=== PATIENT | male | born 1975 | race Hispanic/Latino ===

== ENCOUNTER 2023-08-17 01:47 | Day surgery (SDC) | payer OTHER, SELFPAY ==
[2023-08-03 14:49] VITALS: BMI 31.7
--- NOTE | 2023-08-03 15:16 | PC.NURSE ---
Anesthesiology [place] [id number]
[2023-08-17 12:44] VITALS: BP 136/79; PULSE 60; RESP 20; TEMP 36.1; O2SAT 98; BMI 30.8
--- NOTE | 2023-08-17 12:46 | SUR.PREOP ---
Aquatics Manager [facility] [id number]
[2023-08-17] MEDS: LACTATED RINGERS 1,000 ML 150 ML IV CONT (12:59)
--- NOTE | 2023-08-17 13:00 | WPDANESEPPF ---
Anes - Initial Pre Proc Eval Procedure: Operation Date: 08/17/23 13:30 Proposed Procedures p Esophagogastroduodenoscopy - Agus Chavez MD Date/Time: 08/17/23 13:00 Surgeon: Agus Chavez MD Pre Op Diagnosis: epigastric pain, abdominal distension gaseous Patient Data Age: 48 Gender: M Height: 1.7 m Weight: 89.3 kg Last Vital Signs Temp 97 F L 08/17/23 12:44 Pulse 60 08/17/23 12:44 Resp 20 08/17/23 12:44 BP 136/79 08/17/23 12:44 Pulse Ox 98 08/17/23 12:44 O2 Del Method Room Air 08/17/23 12:44 Allergies Allergy/AdvReac Type Severity Reaction Status Date / Time No Known Allergies Allergy Verified 08/17/23 12:43 Home Medications Medication Instructions Recorded Confirmed Type losartan 50 mg-hydrochlorothiazide 1 tablet PO DAILY 06/16/23 08/17/23 History 12.5 mg tablet omeprazole 40 mg capsule,delayed 40 mg PO DAILY #30 caps 06/16/23 08/17/23 Rx release Patient hx anesthesia problems: none Family hx anesthesia problems: none Results Review: All pre-operative results and documents have been reviewed as part of the pre-operative evaluation. [facility] Social History Social History Smoking status: Unknown if ever smoked Living arrangements: with family Spiritual care concerns: No Anes - Eval Final PreProcedure Day of Procedure 08/17/23 13:00 Patient weight: obese Heart: regular rate and rhythm Lungs: clear to auscultation Airway: Mallampati scale class II and special considerations (Tooth R upper aspect broken. ) Neurological: alert and oriented Last oral intake: >/= 8 hours ASA classification: II Emergent: no Anesthetic plan: proceed Anesthesia type and monitoring: general GIVS and standard monitoring Results Review: All pre-operative results and documents have been reviewed as part of the pre-operative evaluation. Interview via abstract manager. Informed Consent: The patient's anesthetic plan and its attendant risks and benefits were discussed with the patient/family/POA. Questions were solicited and answers provided to the satisfaction of the patient/family/POA.
--- NOTE | 2023-08-17 13:34 | PM.HPGS ---
History of Present Illness History of Present Illness Consent: Risks, benefits, and alternatives have been discussed and questions answered. Patient agrees to proceed with procedure. Chief complaint: epigastric pain, abdominal distension gaseous Narrative: Collins Gutierrez is a 48 year old male with gerd better as long as he is taking omeprazole, also intermittent pain in luq, never had egd Review of Systems Review of Systems: All systems reviewed & are unremarkable except as noted in HPI and below PMFSH Social History Social History Smoking status: Unknown if ever smoked Living arrangements: with family Spiritual care concerns: No Meds Home Medications and Allergies Home Medications Medication Instructions Recorded Confirmed Type losartan 50 mg-hydrochlorothiazide 1 tablet PO DAILY 06/16/23 08/17/23 History 12.5 mg tablet omeprazole 40 mg capsule,delayed 40 mg PO DAILY #30 caps 06/16/23 08/17/23 Rx release Allergies Allergy/AdvReac Type Severity Reaction Status Date / Time No Known Allergies Allergy Verified 08/17/23 12:43 Vital Signs Vital Signs - 24 hr 08/17/23 12:44 Temperature 97 F L Pulse Rate 60 Respiratory Rate 20 Blood Pressure 136/79 Pulse Oximetry 98 Oxygen Delivery Room Air Exam Const: General: comfortable and no acute distress HENMT: Face/Nose/Sinus: Normal nares present Eyes: General: appearance normal, both eyes and all related structures Neck: Neck: no JVD Resp: Auscultation: clear to auscultation bilaterally Cardio: Rate: regular rate Rhythm: regular rhythm GI: Inspection: non-distended GI Palp: Yes Soft to palpation Skin: General skin exam: normal color Neuro: General: gait normal Speech: normal speech Extrem: General: normal to inspection Psych: Mental Status: mental status grossly normal Assessment and Plan Assessment and plan (1) LUQ pain: Code(s): R10.12 - Left upper quadrant pain Status: Acute Assessment and Plan: egd with bx (2) Abdominal bloating: Code(s): R14.0 - Abdominal distension (gaseous) Status: Acute
[2023-08-17 13:48] VITALS: BP 105/56; PULSE 61; RESP 20; O2SAT 98
[2023-08-17 13:58] VITALS: BP 100/57; PULSE 60; RESP 20; O2SAT 96
[2023-08-17 14:07] VITALS: BP 108/68; PULSE 60; RESP 20; O2SAT 98
--- NOTE | 2023-08-17 14:22 | SUR.PHASEII ---
BITA NURSE GENERAL DUTY USED FOR DISCHARGE INSTRUCTIONS. PT STATES UNDERSTANDING.
== END 2023-08-17 14:29 | disposition home or self-care (01) ==
PROVIDERS: PCP Physician Assistant; Referring Provider Nurse Practitioner; Visit Provider Internal Medicine Gastroenterology
PROC: 0DJ08ZZ Inspection of Upper Intestinal Tract, Via Natural or Artificial Opening Endoscopic (ICD-10-PCS; CPT 43235; principal; 2023-08-17 13:30)
DX: K21.9 Gastro-esophageal reflux disease without esophagitis (principal); E66.9 Obesity, unspecified; Z68.30 Body mass index [BMI] 30.0-30.9, adult
CPT/HCPCS: 43239; 88305; J2704; J7120

== ENCOUNTER 2023-11-30 07:38 | Outpatient (CLI) | payer OTHER, SELFPAY ==
--- NOTE | ~2023-11-30 | US_ITS ---
Abdominal Sonogram: Real-time sonographic imaging of the abdomen was performed. Clinical History: Left upper quadrant pain Findings: The liver appears mildly echogenic, with no evidence of mass lesion or bile duct dilatatio n. Main portal vein demonstrates normal direction of flow. The spleen is normal in size without evide nce of focal lesion. The gallbladder is well distended, and demonstrates probable 3 mm gallbladder w all polyp. The common bile duct measures 3 mm. The visualized pancreas, aorta, and IVC are unremarka ble. The right kidney measures 10.9 cm in length and the left kidney measures 10.7 cm. There is no hydronephrosis or renal calculus. Impression: Probable 3 mm gallbladder wall polyp or focal cholesterolosis. Diffuse fatty infiltration of liver. Reviewed, dictated and finalized at [facility]. Impression: Probable 3 mm gallbladder wall polyp or focal cholesterolosis. Diffuse fatty infiltration of liver.
== END 2023-11-30 07:39 | disposition home or self-care (01) ==
PROVIDERS: PCP Physician Assistant; Visit Provider Internal Medicine Gastroenterology
DX: R10.12 Left upper quadrant pain (principal); R14.0 Abdominal distension (gaseous); K76.0 Fatty (change of) liver, not elsewhere classified
CPT/HCPCS: 76700